=== PATIENT | male | born 1950 | race Caucasian/White ===

== ENCOUNTER 2020-05-09 00:23 | Outpatient (CLI) | payer MEDICARE, SELFPAY ==
[2020-05-10 00:19] LABS: SARS-CoV-2 RNA PCR Negative
== END 2020-05-09 00:24 | disposition home or self-care (01) ==
LOC: ANHCOVIDDT 00:23
PROVIDERS: PCP Internal Medicine; Visit Provider Internal Medicine Gastroenterology
DX: Z01.818 Encounter for other preprocedural examination (principal); Z11.59 Encounter for screening for other viral diseases
CPT/HCPCS: 87635; C9803; U0003

== ENCOUNTER 2020-05-12 02:09 | Day surgery (SDC) | payer MEDICARE, SELFPAY ==
[2020-05-06 09:43] VITALS: BMI 25.1
[2020-05-12 06:20] VITALS: BMI 24.5
[2020-05-12] MEDS: LACTATED RINGERS 1,000 ML 150 ML IV CONT (06:38)
--- NOTE | 2020-05-12 07:06 | WPDANESEPPF ---
Anes - Initial Pre Proc Eval Procedure: Operation Date: 05/12/20 07:30 Proposed Procedures p Screening Colonoscopy - Alec Galvez MD Date/Time: 05/12/20 07:06 Surgeon: Alec Galvez MD Pre Op Diagnosis: Neoplasm Screening/ Fam Hx Colon Ca Patient Data Age: 69 Gender: M Height: 5 ft 9 in Weight: 75.5 kg Allergies Allergy/AdvReac Type Severity Reaction Status Date / Time No Known Allergies Allergy Verified 05/12/20 06:18 Home Medications Medication Instructions Recorded Confirmed Type atorvastatin 20 mg PO DAILY 05/06/20 05/12/20 History lisinopril 20 mg PO DAILY 05/06/20 05/12/20 History bfbuipfk-hjz-XQ-lycopen-lutein 1 tablet PO DAILY 05/06/20 05/12/20 History [Men 50 Plus Multivitamin] Patient hx anesthesia problems: none Family hx anesthesia problems: none [facility] Past Medical History Medical History (Updated 05/12/20 @ 07:06 by Sergio Grove MD) HTN (hypertension) Hyperlipidemia Prostate cancer Anes - Eval Final PreProcedure Day of Procedure 05/12/20 07:06 Patient weight: normal Heart: regular rate and rhythm Lungs: clear to auscultation Airway: Mallampati scale class II Neurological: alert and oriented Last oral intake: >/= 8 hours ASA classification: II Emergent: no Anesthetic plan: proceed Anesthesia type and monitoring: general GIVS and standard monitoring Informed Consent: The patient's anesthetic plan and its attendant risks and benefits were discussed with the patient/family/POA. Questions were solicited and answers provided to the satisfaction of the patient/family/POA.
--- NOTE | 2020-05-12 07:45 | WPDGICN ---
Assessment and Plan Assessment and plan (1) Family history of colon cancer requiring screening colonoscopy: Code(s): Z80.0 - Family history of malignant neoplasm of digestive organs Status: Acute Assessment and Plan: Patient's brother has had colon cancer. For this reason surveillance colonoscopy is recommended now and should be considered at 5 year intervals in the future. GI Consult Note Consult date/time: 05/12/20 07:45 HPI: Jorge Alberto Joshi is a 69 year old male seen in evaluation at the request of Dr. Justin Chau.Patient presents for colonoscopy. Patient states that his own weight appetite bowel movements are normal. His family history is significant that his brother had colon cancer. Patient's last colonoscopy was 5 years ago. He denies any blood in his stools. His weight appetite bowel movements are normal. Review of Systems Review of Systems: All systems reviewed & are unremarkable except as noted in HPI and below PMFSH Past Medical History Medical History HTN (hypertension) Hyperlipidemia Prostate cancer Meds Home Medications and Allergies Home Medications Medication Instructions Recorded Confirmed Type atorvastatin 20 mg PO DAILY 05/06/20 05/12/20 History lisinopril 20 mg PO DAILY 05/06/20 05/12/20 History xhhsamnv-ypt-BA-lycopen-lutein 1 tablet PO DAILY 05/06/20 05/12/20 History [Men 50 Plus Multivitamin] Allergies Allergy/AdvReac Type Severity Reaction Status Date / Time No Known Allergies Allergy Verified 05/12/20 06:18 Exam Narrative: Exam Narrative: Physical exam reveals patient to be alert. Vital signs stable. HEENT exam unremarkable. Lungs are clear to auscultation and percussion. Heart is without murmur or extra sounds. Abdominal exam bowel sounds are present soft nontender with no hepatosplenomegaly. Digital external rectal exam is normal.
[2020-05-12 07:48] VITALS: BP 106/64; PULSE 70; RESP 19; O2SAT 98
[2020-05-12 07:58] VITALS: BP 110/69; PULSE 65; RESP 16; O2SAT 97
[2020-05-12 08:08] VITALS: BP 125/79; PULSE 61; RESP 14; O2SAT 100
[2020-05-12 08:18] VITALS: BP 129/78; PULSE 61; RESP 16; O2SAT 99
== END 2020-05-12 08:33 | disposition home or self-care (01) ==
PROVIDERS: PCP Internal Medicine; Visit Provider Internal Medicine Gastroenterology
PROC: 0DJD8ZZ Inspection of Lower Intestinal Tract, Via Natural or Artificial Opening Endoscopic (ICD-10-PCS; CPT 45378; principal; 2020-05-12 07:30)
DX: Z12.11 Encounter for screening for malignant neoplasm of colon (principal); K64.8 Other hemorrhoids; K57.30 Diverticulosis of large intestine without perforation or abscess without bleeding; Z80.0 Family history of malignant neoplasm of digestive organs; I10 Essential (primary) hypertension; E78.5 Hyperlipidemia, unspecified; Z85.46 Personal history of malignant neoplasm of prostate
CPT/HCPCS: G0105; 87635; C9803; J2704; J7120; U0003

== ENCOUNTER 2021-10-26 05:09 | Emergency (ER) | payer MEDICARE, SELFPAY ==
--- NOTE | ~2021-10-26 | XR_ITS ---
EXAMINATION: XR chest 2V DATE: 10/26/2021 08:31 INDICATION: Left chest pain. TECHNIQUE: Frontal and lateral views of the chest were obtained. COMPARISON: None. FINDINGS: The chest demonstrates clear lungs without pneumonia, pleural effusion, or pneumothorax. Th e heart size is normal. There is a surgical clip in right abdomen. IMPRESSION: 1. No acute cardiopulmonary disease. Reviewed, dictated and finalized at location A. HYSICS PROFESSOR
[2021-10-26 05:14] VITALS: BP 140/74; PULSE 83; RESP 16; TEMP 36.2; O2SAT 100
[2021-10-26 06:35] VITALS: BP 154/82; PULSE 73; RESP 18; O2SAT 100
[2021-10-26 07:45] VITALS: BP 158/89; PULSE 68; RESP 18; O2SAT 100
--- NOTE | 2021-10-26 08:18 | ECG_ITS ---
Measurements Intervals [place] Rate: 60 P: 13 WI: 136 QRS: -17 QRSD: 96 T: 7 QT: 457 QTc: 459 Interpretive Statements SINUS RHYTHM BORDERLINE T WAVE ABNORMALITY- INFERIOR LEADS BASELINE ARTIFACT- I, AVR, AVL, V4 BORDERLINE ECG Electronically Signed On 10-26-2021 8:57:03 [employer]SE [employer]ET[employer] MANAGER by Lavelle Jennings D.O.
--- NOTE | 2021-10-26 08:23 | ED.GENADULT ---
HPI - General Adult General Chief complaint: Unspecified Stated complaint: bp fluctuating x 2 days Time Seen by Provider: 10/26/21 07:55 Source: patient Mode of arrival: ambulatory Limitations: no limitations History of Present Illness HPI narrative: Patient drove himself to the emergency room complaining of fluctuation of blood pressure, feeling exhausted, unable to sleep, occasional chest pain, abdominal, 2 to 3 seconds each time, 2-3 times a day for the last few weeks, cold feet, lives alone, a lot of stress lately. History of hypertension, hyperlipidemia. Does not smoke or drink or uses drugs. Patient denies any suicidal or homicidal ideation. Blood pressure on arrival to the emergency room is 140/74. Related Data Home Medications Medication Instructions Recorded Confirmed atorvastatin 20 mg PO DAILY 05/06/20 05/12/20 lisinopril 20 mg PO DAILY 05/06/20 05/12/20 glgwgbbk-dkj-OT-lycopen-lutein 1 tablet PO DAILY 05/06/20 05/12/20 [Men 50 Plus Multivitamin] Allergies Allergy/AdvReac Type Severity Reaction Status Date / Time No Known Allergies Allergy Verified 10/26/21 05:40 Review of Systems Review of Systems: CONSTITUTIONAL: Denies fever, chills, or sweats. EYES: Denies visual changes, redness, or discharge. ENT: Denies rhinorrhea, congestion, sore throat, or otalgia. CARDIOVASCULAR: Denies chest pain, palpitations, or edema. RESPIRATORY: Denies cough or dyspnea. GASTROINTESTINAL: Denies abdominal pain, nausea, vomiting, or diarrhea. GENITOURINARY: Denies dysuria or hematuria. SKIN: Denies rash or itching. MUSCULOSKELETAL: Denies back pain, joint pain, or myalgia. NEUROLOGIC: Denies headache, numbness, or weakness. PSYCHIATRIC: Denies anxiety or depression. [facility] Past Medical History Medical History (Updated 10/26/21 @ 09:32 by German Ng MD) HTN (hypertension) Hyperlipidemia Prostate cancer Exam Narrative: General appearance: Well-developed, well-nourished, depressed Skin: Normal color Head: Normocephalic, nontraumatic Eyes: Clear conjunctiva ENT: Oropharynx normal, ears normal, nose normal Neck: Supple, nontender Chest and respiratory: Airway patent, no respiratory distress, no accessory muscle use Heart: Regular rate/rhythm Abdomen: Soft, nontender, no organomegaly, quiet bowel sounds Vascular: Normal peripheral pulses, normal capillary refill. 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 Chest pain protocol ordered. Further plan to follow Differential Diagnosis Differential Diagnosis: Depression, electrolyte imbalance Vital Signs Vital Signs: Vital Signs Temperature 36.2 C L 10/26/21 05:14 Pulse Rate 83 10/26/21 05:14 Respiratory Rate 16 10/26/21 05:14 Blood Pressure 140/74 10/26/21 05:14 Pulse Oximetry 100 10/26/21 05:14 Temperature 36.2 C L 10/26/21 05:14 Pulse Rate 68 10/26/21 07:45 Respiratory Rate 18 10/26/21 07:45 Blood Pressure 158/89 H 10/26/21 07:45 Pulse Oximetry 100 10/26/21 07:45 Lab Data Result diagrams
[2021-10-26 08:45] LABS: Basophils Percent Auto 0.3 % (0.2-1.2); Eosinophils Percent Auto 0.5 % (0-4.4); Hematocrit 44.5 % (42.0-52.0); Hemoglobin 14.9 g/dL (14.0-18.0); Immature Granulocyte Absolute 0.02 K/mm3 (0.00-0.031); Immature Granulocyte Percent A 0.3 % (0-0.5); Lymphocytes Percent Auto 12.1 % (18.3-44.2); Mean Corpuscular HGB Conc 33.5 g/dl (32-36); Mean Corpuscular Hemoglobin 32.8 pg (26-34); Mean Platelet Volume 9.6 fl (7.4-10.4); Monocytes Absolute Auto 0.4 K/mm3 (0.1-0.6); Monocytes Percent Auto 6.6 % (2.6-8.5); Neutrophils Absolute Auto 4.7 K/mm3 (1.3-6.7); Neutrophils Percent Auto 80.2 % (45.5-73.1); Platelet Count Result 235 k/mm3 (150-375); Red Blood Count 4.54 M/mm3 (4.6-6.20); Red Cell Distribution Width 11.6 % (11.5-14.5); White Blood Count 5.8 K/mm3 (4.5-10.0)
[2021-10-26 08:49] LABS: Add Urine Microscopic? NO; Appearance Urine Clear (Clear); Bilirubin Urine Negative (Negative); Blood Urine Negative (Negative); Color Urine Straw (Yellow); Glucose Urine UA Negative (Negative); Ketones Urine Negative (Negative); Leukocyte Esterase Ur Negative LEU/UL (Negative); Nitrate Urine Negative (Negative); Protein Urine Negative (Negative); Specific Grav Ur 1.009 (1.001-1.035); Urobilinogen Urine Negative mg/dL (<2.0)
[2021-10-26 08:53] LABS: Alanine Aminotransferase 21 U/L (4-50); Albumin Level 4.3 g/dL (3.5-5.1); Alkaline Phosphatase 67 U/L (38-126); Anion Gap 4 mmol/L (8-16); Aspartate Amino Transferase 24 U/L (17-59); Bilirubin,Total 0.6 mg/dL (0.2-1.3); Blood Urea Nitrogen 13 mg/dL (9-20); Carbon Dioxide 30 mmol/L (22-30); Chloride 100 mmol/L (98-107); Estimated CRCL calculation 70 ml/min; Estimated Glomerular Filt Rate > 60; Glucose 103 mg/dL (65-110); Potassium 4.1 mmol/L (3.4-5.0); Sodium 134 mmol/L (137-145)
[2021-10-26 09:05] LABS: Troponin I < 0.012 ng/mL (0.000-0.034)
[2021-10-26] MEDS: ASPIRIN 81 MG CHEWABLE TABLET 324 MG PO (09:07)
[2021-10-26 09:59] VITALS: BP 157/90; PULSE 71; RESP 16
== END 2021-10-26 09:47 | disposition home or self-care (01) ==
PROVIDERS: Emergency Provider Emergency Medicine; PCP Internal Medicine
DX: R53.1 Weakness (principal); G47.00 Insomnia, unspecified; F32.A Depression, unspecified; I10 Essential (primary) hypertension; E78.5 Hyperlipidemia, unspecified; Z85.46 Personal history of malignant neoplasm of prostate; R94.31 Abnormal electrocardiogram [ECG] [EKG]
CPT/HCPCS: 36415; 71046; 80053; 81003; 84484; 85025; 93005; 99284; A9270

== ENCOUNTER 2022-08-27 11:39 | Outpatient (CLI) | payer MEDICARE, SELFPAY ==
--- NOTE | 2022-08-27 11:54 | ECG_ITS ---
Measurements Intervals [place] Rate: 69 P: 66 AL: 143 QRS: -13 QRSD: 90 T: 30 QT: 430 QTc: 463 Interpretive Statements SINUS RHYTHM WITHIN NORMAL LIMITS COMPARED TO ECG 10/26/2021 08:42:55 NO SIGNIFICANT CHANGES Electronically Signed On 08-27-2022 14:10:17 CDT by Gonzalo Lee M.D.
== END 2022-08-27 11:40 | disposition home or self-care (01) ==
LOC: ANHCARD 11:43
PROVIDERS: PCP Internal Medicine; Visit Provider Dentist
DX: I10 Essential (primary) hypertension (principal)
CPT/HCPCS: 93005

== ENCOUNTER 2025-03-25 09:06 | Emergency (ER) | payer MEDICARE, SELFPAY ==
--- NOTE | ~2025-03-25 | XR_ITS ---
XR wrist RT min 3V Ordering provider: Haider Walter APRN History: . Fell from golf cart 4 wks ago, navicular pain Rt wrist . Comparison: None. FINDINGS: BONES: Nonhealed fracture of the distal scaphoid bone is noted. Follow-up advised. JOINT SPACES: Normal. SOFT TISSUES: Normal. IMPRESSION: Non toyn fracture of the distal scaphoid. Follow-up advised.. Reviewed, dictated and finalized at location A. IMPRESSION: Non tony fracture of the distal scaphoid. Follow-up advised..
[2025-03-25 09:11] VITALS: BP 133/81; PULSE 82; RESP 16; TEMP 36.4; O2SAT 98
--- NOTE | 2025-03-25 09:43 | ED_ITS ---
HPI - Extremity Injury (Upper) General Chief Complaint: Extremity Injury, Upper Stated Complaint: Wrist Pain Time Seen by Provider: 03/25/25 09:40 Source: patient and RN notes reviewed Mode of arrival: ambulatory Limitations: no limitations History of Present Illness HPI narrative: 74-year-old male presents Express Care complaining of right wrist pain. Patient states that he injured his right wrist 1 month ago when he fell off a golf cart. Patient denied losing any consciousness, or hitting his head. Patient denies any neck or back pain. Patient reports he has swelling to the lateral side of his right wrist and pain with movement. Patient is able to use his right hand to perform daily activities. Patient denies any numbness or tingling to the right arm. Patient denies any wounds. Related Data Home Medications Medication Instructions Recorded Confirmed Last Taken Type atorvastatin 20 mg tablet 20 mg PO DAILY 05/06/20 05/12/20 05/10/20 History lisinopril 20 mg tablet 20 mg PO DAILY 05/06/20 05/12/20 05/12/20 History bbollfhj-at-yofqy 300 mcg-K 60 1 tablet PO DAILY 05/06/20 05/12/20 05/11/20 History mcg-lycop 600 mcg-lutein 300 mcg tablet (Men 50 Plus Multivitamin) Allergies Allergy/AdvReac Type Severity Reaction Status Date / Time No Known Allergies Allergy Verified 03/25/25 09:38 Review of Systems Review of Systems: CONSTITUTIONAL: Denies fever, chills, or sweats. EYES: Denies visual changes, redness, or discharge. ENT: Denies rhinorrhea, congestion, sore throat, or otalgia. CARDIOVASCULAR: Denies chest pain, palpitations, or edema. RESPIRATORY: Denies cough or dyspnea. GASTROINTESTINAL: Denies abdominal pain, nausea, vomiting, or diarrhea. GENITOURINARY: Denies dysuria or hematuria. SKIN: Denies rash, wound, or itching. MUSCULOSKELETAL: Denies back pain, joint pain, or myalgia. Positive for injury and swelling NEUROLOGIC: Denies headache, numbness, or weakness. PSYCHIATRIC: Denies anxiety or depression. All other systems reviewed are negative, except as documented in HPI. [facility] Past Medical History Medical History (Updated 03/25/25 @ 10:17 by Haider Walter APRN) Prostate cancer Hyperlipidemia HTN (hypertension) Comments At the time of my signature, I reviewed and agree with the nursing past medical, surgical, social, and family history. There is no relevant family history pertinent to the patient complaint. Exam Narrative: GENERAL: This is a well-nourished, well-developed adult, in no apparent distress. They are non ill-appearing, nontoxic appearing. HEAD: normocephalic, atraumatic. EYES: Sclera clear/white. Vision is grossly intact. Conjunctiva normal. Extraocular movement intact. EARS: External ears normal Hearing grossly intact. NOSE: External nose normal THROAT: Mucous membranes moist NECK: Neck supple CARDIOVASCULAR: Regular rate and rhythm RESPIRATORY: Respiratory rate normal, respiratory effort nonlabored, no respiratory distress NEURO: awake, alert, and oriented to person, place and time. There were no obvious focal neurologic abnormalities. EXTREMITIES: Right wrist: No obvious deformity or redness. Mild Pain to range of motion. Normal pronation, supination, extension, flexion of wrist. No bony tenderness. No snuffbox tenderness. There is mild swelling and bruising present to the lateral wrist. There is tenderness throughout the bruising to the right wrist. Capillary refill less than 3 seconds. A radial Pulse 2 +palpable. Normal sensation. Neurovascular status intact distal injury. Ulnar and radial nerve distribution intact throughout the right hand. Patient is able to make an okay sign, stop sign, thumbs-up sign, and a fist. BACK: Nontender without deformity. Course Course Emergency Course: Portions of this record may have been created with voice recognition software Level of Care: Express Care Visit Vital Signs Vital signs: Vital Signs Temperature 97.5 F L 03/25/25 09:11 Pulse Rate 82 03/25/25 09:11 Respiratory Rate 16 03/25/25 09:11 Blood Pressure 133/81 03/25/25 09:11 Pulse Oximetry 98 03/25/25 09:11 Oxygen Delivery Room Air 03/25/25 09:11 Temperature 97.5 F L 03/25/25 09:11 Pulse Rate 82 03/25/25 09:11 Respiratory Rate 16 03/25/25 09:11 Blood Pressure 133/81 03/25/25 09:11 Pulse Oximetry 98 03/25/25 09:11 Oxygen Delivery Room Air 03/25/25 09:11 Reviewed Procedures Orthopedic Splinting/Casting Injury #1: Splinting/Casting Date: 03/25/25 Splinting/Casting Time: 10:14 Side: right Upper Extremity Injury Location: wrist and hand (Scaphoid fracture) Upper Extremity Immobilizer: sling/shoulder immobilizer and thumb spica Pre-Formed: sling OCL: thumb spica Pre-Procedure Neuro Vascular Exam: normal Post-Procedure Neuro Vascular Exam: normal Additional Comments: Patient tolerated procedure well MDM - Extremity Injury (Upper) MDM Narrative Medical decision making narrative: X-ray showed a non healed scaphoid fracture the right hand. Patient placed in a right thumb spica splint. Patient referred ortho. Discussed physical exam findings. Advised supportive measures and signs/symptoms to go to the ER. Pt is appropriate for outpt treatment and f/u. Differential Diagnosis Differential diagnosis: Likely sprain and strain of wrist, fracture of wrist and other (Wrist contusion) Imaging Data Radiologist's impression: ITS Impressions Wrist X-Ray 03/25/25 09:58 IMPRESSION: Non tony fracture of the distal scaphoid. Follow-up advised.. Critical Care Time Critical Care Time Critical Care Time: No Discharge Plan Discharge Clinical Impression: Fracture of scaphoid bone of right wrist Qualifiers: Encounter type: initial encounter Scaphoid bone location: distal pole Fracture type: closed Fracture alignment: nondisplaced Qualified Code(s): S62.014A - Nondisplaced fracture of distal pole of navicular [scaphoid] bone of right wrist, initial encounter for closed fracture Patient Disposition: Home Condition: Stable Instructions: Scaphoid Fracture (ED) Additional Instructions: X-ray shows a fracture to your scaphoid bone. You have been placed in a splint today. Wear the splint at all times. Do not get it wet. Please cover it when you take a shower. You may take Tylenol or ibuprofen as needed for pain. Please follow-up with an orthopedist in 3-5 days. If your symptoms worsen, you developed numbness or tingling, or any other concerns please go to the ER immediately. Patient Language: Tuvaluan Prescriptions: No Action atorvastatin 20 mg tablet 20 mg PO DAILY lisinopril 20 mg tablet 20 mg PO DAILY Men 50 Plus Multivitamin 300-600-300 mcg Tablet 1 tablet PO DAILY Follow-up/Referrals: Isac,Rock Barnes MD [Primary Care Provider] - Jacobo Hay MD [Physician] - 3 Days (scaphoid fracture) Time of Disposition: 10:16
== END 2025-03-25 10:52 | disposition home or self-care (01) ==
PROVIDERS: PCP Internal Medicine
DX: S42.101A Fracture of unspecified part of scapula, right shoulder, initial encounter for closed fracture (principal); V86.99XA Unspecified occupant of other special all-terrain or other off-road motor vehicle injured in nontraffic accident, initial encounter; I10 Essential (primary) hypertension; E78.5 Hyperlipidemia, unspecified; Z85.46 Personal history of malignant neoplasm of prostate
CPT/HCPCS: 29125; 73110; 99214; A4565; G0463